=== PATIENT | male | born 1980 | race Caucasian/White ===

== ENCOUNTER → 2021-11-20 | Outpatient (CLI) | payer BC ==
--- NOTE | 2021-11-20 09:55 | XR ---
EXAMINATION TYPE: XR foot complete LT DATE OF EXAM: 11/20/2021 CLINICAL HISTORY: pain TECHNIQUE: Frontal, lateral and oblique images of the left foot are obtained. COMPARISON: None. FINDINGS: There is no acute fracture/dislocation evident. The overlying soft tissue appears unrema rkable. Bone cyst or geode noted at the base of the proximal phalanx great toe. Mild degenerative homero rowing first metatarsophalangeal joint with additional geode noted involving the first metatarsal hea d. IMPRESSION: There is no acute fracture or dislocation. ICD 10 NO FRACTURE, INITIAL EVALUATION
== END | disposition home or self-care (01) ==
LOC: RADXRMAIN 09:01
PROVIDERS: ATTEND Internal Medicine
DX: M19.079 Primary osteoarthritis, unspecified ankle and foot (principal)